=== PATIENT | female | born 1965 | race Caucasian/White ===

== ENCOUNTER 2021-04-15 17:48 | Inpatient (IN) | payer MEDICAID ==
[~2021-04-15] VITALS: Ht 167.6 cm; Wt 56.2 kg
[2021-04-15 18:01] VITALS: BP 133/93
[2021-04-15 18:14] LABS: BASO % 0.4 % (0.0-1.0); EOS # 0.4 10*3/uL (0.0-0.4); EOS % 6.2 % (1.0-4.0); LYMPH # 1.7 10*3/uL (1.3-4.4); LYMPH % 30.4 % (27.0-41.0); MEAN CELL VOLUME 92.1 fl (81.0-99.0); MEAN CORPUSCULAR HGB CONC 30.4 g/dl (33.0-37.0); MEAN PLATELET VOLUME 8.9 fl (9.6-12.3); MONO # 0.7 10*3/uL (0.1-1.0); MONO % 12.8 % (3.0-9.0); NEUT # 2.8 10*3/uL (2.3-7.9); PLATELET COUNT AUTOMATED 415 10*3/uL (130-400); RED BLOOD COUNT 3.04 10*6/uL (4.10-5.10); WHITE BLOOD COUNT 5.6 10*3/uL (4.8-10.8)
[2021-04-15] MEDS ORDERED: CARAFATE1 GM PO (18:19)
[2021-04-15] MEDS ORDERED: CITALOPRAM40 MG PO (18:19)
[2021-04-15] MEDS ORDERED: ATIVAN1 MG PO (18:19)
[2021-04-15] MEDS ORDERED: SEROQUEL25 MG PO (18:22)
[2021-04-15] MEDS ORDERED: ALBUTEROL2.5 MG/0.5 NEB (18:22)
[2021-04-15] MEDS ORDERED: PERCOCET 5-3251 EACH PO (18:23)
[2021-04-15 18:31] LABS: ALBUMIN 2.6 gm/dl (3.1-4.5); ALKALINE PHOSPHATASE 82 U/L (45-117); BUN 12 mg/dl (7-24); CHLORIDE 102 mmol/L (98-107); CREATININE 0.44 mg/dL (0.55-1.02); POTASSIUM 3.9 mmol/L (3.5-5.1); SGOT/AST 10 IU/L (3-35); SGPT/ALT 11 U/L (12-78); SODIUM 138 mmol/L (136-145); TOTAL PROTEIN 7.1 gm/dL (6.4-8.2)
[2021-04-15 18:36] LABS: ACT PARTIAL THROMBO TIME 26.3 SECONDS (20.0-32.1); TROPONIN I < 0.015 ng/ml (<0.045)
[2021-04-15 19:44] VITALS: BP 138/86
[2021-04-15 23:31] VITALS: BP 132/82
[2021-04-16] VITALS: BP 108/20; BP 108/70
[2021-04-16 06:22] LABS: BASO % 0.4 % (0.0-1.0); HEMATOCRIT 29.4 % (37.0-47.0); LYMPH # 0.6 10*3/uL (1.3-4.4); LYMPH % 19.6 % (27.0-41.0); MEAN CELL VOLUME 93.9 fl (81.0-99.0); MEAN CORPUSCULAR HGB 27.8 pg (27.0-31.0); MEAN CORPUSCULAR HGB CONC 29.6 g/dl (33.0-37.0); MEAN PLATELET VOLUME 9.4 fl (9.6-12.3); MONO # 0.1 10*3/uL (0.1-1.0); MONO % 2.5 % (3.0-9.0); NEUT # 2.2 10*3/uL (2.3-7.9); NEUT % 77.1 % (47.0-73.0); PLATELET COUNT AUTOMATED 446 10*3/uL (130-400); RED BLOOD COUNT 3.13 10*6/uL (4.10-5.10); RED CELL DISTRI WIDTH 15.9 % (0-14.5); WHITE BLOOD COUNT 2.8 10*3/uL (4.8-10.8)
[2021-04-16 06:27] LABS: BUN 17 mg/dl (7-24); CHLORIDE 101 mmol/L (98-107); CHOLESTEROL 125 mg/dL (<200); CREATININE 0.46 mg/dL (0.55-1.02); FREE T4 1.06 ng/dl (0.76-1.46); IRON 27 ug/dL (50-170); LDH 188 U/L (84-246); LDL CHOLESTEROL 45 mg/dL (9-159); POTASSIUM 4.5 mmol/L (3.5-5.1); SODIUM 137 mmol/L (136-145); TOTAL IRON BINDING CAPACITY 321 ug/dl (250-450); TRIGLYCERIDES 70 mg/dl (<150)
[2021-04-16 06:32] LABS: THYROID STIM HORMONE (HS) 0.176 uIU/ml (0.358-4.75)
[2021-04-16 08:00] VITALS: BP 135/85
[2021-04-16 08:45] LABS: ABG BASE EXCESS 9.5 mmol/L (-2.0-2.0); ARTERIAL BLOOD GAS PH 7.395 (7.35-7.45); ARTERIAL BLOOD GAS PO2 102.7 (80-90)
[2021-04-16 09:42] LABS: VITAMIN D, 25-HYDROXY 110.9 ng/mL (30-100)
[2021-04-16 09:43] LABS: FERRITIN 88.3 ng/mL (10.0-291.0)
[2021-04-16 12:00] VITALS: BP 135/80
[2021-04-16 16:00] VITALS: BP 130/82
[2021-04-16 20:00] VITALS: BP 144/71
[2021-04-17] VITALS: BP 124/94
[2021-04-17 06:09] LABS: CHLORIDE 104 mmol/L (98-107); POTASSIUM 3.6 mmol/L (3.5-5.1); SODIUM 140 mmol/L (136-145)
[2021-04-17 06:24] LABS: BASO % 0.3 % (0.0-1.0); EOS % 0.7 % (1.0-4.0); HEMATOCRIT 26.2 % (37.0-47.0); LYMPH # 1.6 10*3/uL (1.3-4.4); LYMPH % 27.7 % (27.0-41.0); MEAN CELL VOLUME 95.6 fl (81.0-99.0); MEAN CORPUSCULAR HGB 27.7 pg (27.0-31.0); MEAN PLATELET VOLUME 9.2 fl (9.6-12.3); MONO # 0.7 10*3/uL (0.1-1.0); MONO % 12.2 % (3.0-9.0); NEUT # 3.4 10*3/uL (2.3-7.9); NEUT % 58.9 % (47.0-73.0); PLATELET COUNT AUTOMATED 444 10*3/uL (130-400); RED BLOOD COUNT 2.74 10*6/uL (4.10-5.10); RED CELL DISTRI WIDTH 15.9 % (0-14.5); WHITE BLOOD COUNT 5.7 10*3/uL (4.8-10.8)
[2021-04-17 06:26] LABS: ALBUMIN 2.3 gm/dl (3.1-4.5); ALKALINE PHOSPHATASE 75 U/L (45-117); BUN 13 mg/dl (7-24); CREATININE 0.36 mg/dL (0.55-1.02); SGOT/AST 10 IU/L (3-35); SGPT/ALT 11 U/L (12-78); TOTAL PROTEIN 6.3 gm/dL (6.4-8.2)
[2021-04-17 08:00] VITALS: BP 129/84
[2021-04-17 12:00] VITALS: BP 127/77
[2021-04-17 16:00] VITALS: BP 101/68
[2021-04-17 20:00] VITALS: BP 125/69
[2021-04-18] VITALS: BP 126/60
[2021-04-18 06:18] LABS: BASO # 0.1 10*3/uL (0.0-0.1); BASO % 0.9 % (0.0-1.0); EOS # 0.4 10*3/uL (0.0-0.4); EOS % 7.6 % (1.0-4.0); HEMATOCRIT 27.5 % (37.0-47.0); LYMPH # 1.5 10*3/uL (1.3-4.4); LYMPH % 27.8 % (27.0-41.0); MEAN CELL VOLUME 95.8 fl (81.0-99.0); MEAN CORPUSCULAR HGB 27.9 pg (27.0-31.0); MEAN CORPUSCULAR HGB CONC 29.1 g/dl (33.0-37.0); MEAN PLATELET VOLUME 8.8 fl (9.6-12.3); MONO # 0.7 10*3/uL (0.1-1.0); MONO % 12.5 % (3.0-9.0); NEUT # 2.8 10*3/uL (2.3-7.9); PLATELET COUNT AUTOMATED 435 10*3/uL (130-400); RED BLOOD COUNT 2.87 10*6/uL (4.10-5.10); RED CELL DISTRI WIDTH 15.7 % (0-14.5); WHITE BLOOD COUNT 5.4 10*3/uL (4.8-10.8)
[2021-04-18 06:23] LABS: BUN 11 mg/dl (7-24); CHLORIDE 104 mmol/L (98-107); CREATININE 0.37 mg/dL (0.55-1.02); POTASSIUM 3.6 mmol/L (3.5-5.1); SODIUM 142 mmol/L (136-145)
[2021-04-18 08:00] VITALS: BP 104/85
[2021-04-18 12:00] VITALS: BP 130/66
[2021-04-18] MEDS ORDERED: ZITHROMAX250 MG PO (13:48)
[2021-04-18] MEDS ORDERED: MUCUS RELIEF600 MG PO (13:48)
[2021-04-18 15:25] VITALS: BP 127/67
== END 2021-04-18 15:20 | DRG 720 ==
LOC: ED 17:48 → EDHOLD 20:05 → 4E 20:05
PROVIDERS: Emergency Medicine; Family Medicine; Student in an Organized Health Care Education/Training Program; ADMIT Family Medicine; ATTEND Family Medicine
PROC: 5A09357 Assistance with Respiratory Ventilation, Less than 24 Consecutive Hours, Continuous Positive Airway Pressure (ICD-10-PCS; principal; 2021-04-17)
DX: A41.9 Sepsis, unspecified organism (principal); J44.1 Chronic obstructive pulmonary disease with (acute) exacerbation; J96.21 Acute and chronic respiratory failure with hypoxia; E43 Unspecified severe protein-calorie malnutrition; J15.6 Pneumonia due to other Gram-negative bacteria; F32.A Depression, unspecified; F41.9 Anxiety disorder, unspecified; I50.9 Heart failure, unspecified; Z88.8 Allergy status to other drugs, medicaments and biological substances; Z88.6 Allergy status to analgesic agent; Z79.51 Long term (current) use of inhaled steroids; Z79.899 Other long term (current) drug therapy; Z79.1 Long term (current) use of non-steroidal anti-inflammatories (NSAID); Z71.6 Tobacco abuse counseling; Z68.20 Body mass index [BMI] 20.0-20.9, adult

== ENCOUNTER 2021-04-18 15:53 | Inpatient (IN) | payer MEDICAID ==
[~2021-04-18] VITALS: Ht 167.6 cm; Wt 56.2 kg
[~2021-04-18 15:53] MED LIST: ALBUTEROL2.5 MG/0.5 NEB; ATIVAN1 MG PO; CARAFATE1 GM PO; CITALOPRAM40 MG PO; MUCUS RELIEF600 MG PO; PERCOCET 5-3251 EACH PO; SEROQUEL25 MG PO; ZITHROMAX250 MG PO
[2021-04-18 18:20] VITALS: BP 124/72
[2021-04-18 20:00] VITALS: BP 124/72
[2021-04-19 06:31] LABS: BASO % 0.2 % (0.0-1.0); EOS # 0.1 10*3/uL (0.0-0.4); EOS % 1.1 % (1.0-4.0); HEMATOCRIT 26.9 % (37.0-47.0); LYMPH # 1.9 10*3/uL (1.3-4.4); LYMPH % 35.6 % (27.0-41.0); MEAN CELL VOLUME 94.4 fl (81.0-99.0); MEAN CORPUSCULAR HGB 28.1 pg (27.0-31.0); MEAN CORPUSCULAR HGB CONC 29.7 g/dl (33.0-37.0); MEAN PLATELET VOLUME 8.9 fl (9.6-12.3); MONO # 0.7 10*3/uL (0.1-1.0); MONO % 12.6 % (3.0-9.0); NEUT # 2.7 10*3/uL (2.3-7.9); NEUT % 50.3 % (47.0-73.0); PLATELET COUNT AUTOMATED 426 10*3/uL (130-400); RED BLOOD COUNT 2.85 10*6/uL (4.10-5.10); RED CELL DISTRI WIDTH 15.5 % (0-14.5); WHITE BLOOD COUNT 5.4 10*3/uL (4.8-10.8)
[2021-04-19 06:59] LABS: ALBUMIN 2.3 gm/dl (3.1-4.5); ALKALINE PHOSPHATASE 72 U/L (45-117); BUN 11 mg/dl (7-24); CHLORIDE 103 mmol/L (98-107); CHOLESTEROL 133 mg/dL (<200); CREATININE 0.44 mg/dL (0.55-1.02); LDL CHOLESTEROL 53 mg/dL (9-159); POTASSIUM 3.1 mmol/L (3.5-5.1); SGOT/AST 6 IU/L (3-35); SGPT/ALT 9 U/L (12-78); SODIUM 143 mmol/L (136-145); TRIGLYCERIDES 92 mg/dl (<150)
[2021-04-19 07:06] LABS: THYROID STIM HORMONE (HS) 0.161 uIU/ml (0.358-4.75)
[2021-04-19 08:00] VITALS: BP 121/69
[2021-04-19 10:54] LABS: BILIRUBIN Negative (Negative); BLOOD Negative (Negative); CLARITY Turbid (Clear); COLOR Yellow (Yellow); GLUCOSE Negative (Negative); KETONE Negative (Negative); LEUKO ESTERASE Negative (Negative); NITRITE Negative (Negative); UROBILINOGEN 0.2 E.U./dl (0.0-1.0)
[2021-04-19 11:12] LABS: RBC 0-2 rbc/hpf (0-2); WBC 0-2 wbc/hpf (0-5)
[2021-04-19 20:00] VITALS: BP 115/73
[2021-04-20 07:24] LABS: BASO % 0.7 % (0.0-1.0); EOS # 0.4 10*3/uL (0.0-0.4); EOS % 7.2 % (1.0-4.0); HEMATOCRIT 29.8 % (37.0-47.0); LYMPH # 1.9 10*3/uL (1.3-4.4); LYMPH % 30.1 % (27.0-41.0); MEAN CELL VOLUME 94.3 fl (81.0-99.0); MEAN CORPUSCULAR HGB 27.5 pg (27.0-31.0); MEAN CORPUSCULAR HGB CONC 29.2 g/dl (33.0-37.0); MEAN PLATELET VOLUME 8.6 fl (9.6-12.3); MONO # 0.7 10*3/uL (0.1-1.0); MONO % 10.9 % (3.0-9.0); NEUT # 3.1 10*3/uL (2.3-7.9); NEUT % 50.8 % (47.0-73.0); PLATELET COUNT AUTOMATED 423 10*3/uL (130-400); RED BLOOD COUNT 3.16 10*6/uL (4.10-5.10); RED CELL DISTRI WIDTH 15.9 % (0-14.5); WHITE BLOOD COUNT 6.1 10*3/uL (4.8-10.8)
[2021-04-20 07:41] LABS: ALBUMIN 2.3 gm/dl (3.1-4.5); ALKALINE PHOSPHATASE 75 U/L (45-117); BUN 10 mg/dl (7-24); CHLORIDE 104 mmol/L (98-107); CREATININE 0.44 mg/dL (0.55-1.02); POTASSIUM 3.7 mmol/L (3.5-5.1); SGOT/AST 7 IU/L (3-35); SGPT/ALT 11 U/L (12-78); SODIUM 143 mmol/L (136-145); TOTAL PROTEIN 6.2 gm/dL (6.4-8.2)
[2021-04-20 08:00] VITALS: BP 123/82
[2021-04-20 20:00] VITALS: BP 112/62
[2021-04-21 08:00] VITALS: BP 107/94
[2021-04-21 20:00] VITALS: BP 102/66
[2021-04-22 08:00] VITALS: BP 105/60
[2021-04-22 20:00] VITALS: BP 98/58
[2021-04-23 08:24] VITALS: BP 110/58
[2021-04-23] MEDS ORDERED: B121000 MCG/1 IM (10:51)
[2021-04-23] MEDS ORDERED: LORAZEPAM0.5 MG PO (10:51)
[2021-04-23] MEDS ORDERED: MIRTAZAPINE15 M2 PO (10:51)
[2021-04-23] MEDS ORDERED: LORAZEPAM1 MG PO (10:51)
[2021-04-23] MEDS ORDERED: BUSPIRONE HCL7.5 MG PO (10:51)
[2021-04-23] MEDS ORDERED: ROZEREM8 MG PO (10:51)
== END 2021-04-23 11:30 | DRG 751 ==
LOC: 3N 15:53
PROVIDERS: Emergency Medicine; ADMIT Psychiatry & Neurology Psychiatry; ATTEND Psychiatry & Neurology Psychiatry
DX: F33.2 Major depressive disorder, recurrent severe without psychotic features (principal); I50.9 Heart failure, unspecified; Z20.822 Contact with and (suspected) exposure to COVID-19; F17.210 Nicotine dependence, cigarettes, uncomplicated; J44.9 Chronic obstructive pulmonary disease, unspecified; F90.9 Attention-deficit hyperactivity disorder, unspecified type; F41.9 Anxiety disorder, unspecified; J96.11 Chronic respiratory failure with hypoxia; R45.851 Suicidal ideations; F43.10 Post-traumatic stress disorder, unspecified; Z88.6 Allergy status to analgesic agent; Z99.81 Dependence on supplemental oxygen; Z71.6 Tobacco abuse counseling; Z82.49 Family history of ischemic heart disease and other diseases of the circulatory system; Z88.8 Allergy status to other drugs, medicaments and biological substances; E43 Unspecified severe protein-calorie malnutrition